=== PATIENT | female | born 1965 | race Caucasian/White ===

== ENCOUNTER 2019-01-22 08:25 | Day surgery (SDC) | payer OTHER, SELFPAY ==
[2019-01-17 17:14] LABS: Hematocrit 45.1 % (37-47); Hemoglobin 14.4 g/dL (12.0-15.0); Mean Corp Hgb Conc 31.9 g/dL (32-36); Mean Corpuscular Hgb 27.6 pg (27.0-32.0); Mean Corpuscular Volume 86.6 fL (81-99); Mean Platelet Vol. 10.6 fl (6.2-12.0); Platelet Count 254 K/mm3 (150-450); RBC Distribution Width CV 14.1 % (11.6-14.6); RBC Distribution Width SD 44.6 fl (35.1-43.9); Red Blood Count 5.21 M/mm3 (4.2-5.4); White Blood Count 8.8 K/mm3 (4.4-11.0)
[2019-01-17 17:19] LABS: International Normalized Ratio 1.1; Prothrombin Time (Protime)PT. 13.6 SECONDS (11.7-14.9)
[2019-01-17 17:20] LABS: Partial Thromboplast Time 31.6 Seconds (24.1-36.2)
[2019-01-17 17:29] LABS: AST(SGOT) 19 U/L (15-37); Alanine Aminotransfer ALT/SGPT 34 U/L (13-56); Albumin, Serum 3.8 g/dL (3.2-5.0); Alkaline Phosphatase 118 U/L (45-117); Anion Gap 6 (5-15); BUN 18 mg/dL (7-18); BUN/Creat Ratio 25.1 RATIO (10-20); Calcium,Total 9.1 mg/dL (8.5-10.1); Chloride 107 mmol/L (98-107); Creatinine, Serum 0.72 mg/dL (0.55-1.02); EST Glomerular Filtration Rate 89 mL/min (>60); Est Glom Filt Rate - Afr Amer 108 mL/min (>60); Globulin 3.8 g/dL (2.2-4.2); Glucose 121 mg/dL (74-106); Potassium 4.6 mmol/L (3.5-5.1); Protein, Total 7.6 g/dL (6.4-8.2); Sodium Level 143 mmol/L (136-145)
--- NOTE | 2019-01-21 18:05 | PCM.HP.BLA ---
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 Sofie claims it started discovered by CT scan and has been present since noted 12/21/18. It occurs all the time. It is located in the Uterus and is non-radiating. An associated sign and symptom is Enlarged Uterus found on CT scan 12/21/18. Additional comment: CT scan shows large inhomogenous uterus, denies any vaginal bleeding or symptoms and had blood in her urine for 2 days about a few weeks ago. ALLERGIES: Motrin, Stomach ache, Latex and Hives and/or rash MEDICATIONS HISTORY: Patient is also takin. atorvastatin 10 mg tablet, One pill by mouth once a day 2. fluoxetine 20 mg tablet, One pill by mouth once a day REVIEW OF SYSTEMS: GENERAL - Denies fever, or chills SKIN - Denies skin changes EYES - Denies visual changes EARS - Denies difficulty hearing NOSE - Denies nasal congestion or bleeding MOUTH - Denies sore throat or difficulty swallowing NECK - Denies pain or swelling RESPIRATORY - Denies shortness of breath or wheezing CARDIOVASCULAR - Denies palpitations or chest pain GASTROINTESTINAL - Denies nausea, vomiting, diarrhea, constipation GENITOURINARY - Denies dysuria, frequency of urination, incontinence of urine MUSCULOSKELETAL - Denies joint or muscle pain NEUROLOGICAL - Denies localized numbness or weakness PSYCHIATRIC - Denies depression or anxiety ENDOCRINE - Denies heat or cold intolerance, weight loss or gain HEMATO-IMMUNOLOGIC - Denies excesive bleeding with cuts PAST HISTORY: Breast/Ovarian/Colon Cancers - Denies Infections - Chicken pox, Mumps and Measles Illnesses - Hyperlipidemia, Anxiety Accidents - None History of Abnormal PAPS - Denies Hospitalizations - see surgery SURGICAL HISTORY: 1. 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 Illicit Drug Use - None Sexual Activity - sexually inactive Control - Not active CONSTITUTIONAL - NAD, well nourished, and well developed SKIN - No rash, lesions, or ulcers HEENT - Normocephalic, PERRLA, EOMI NECK - No nodes, no nuchal rigidity and thyroid normal size and texture LYMPH NODES - Palpation of lymph nodes in neck and groins within normal limits LUNGS - CTA x2 without wheezes, crackles or rales CARDIAC - Regular rate and rhythm without rubs, murmurs, or gallops ABDOMEN - Without hepatosplenomegaly, distention, masses, rebound, or guarding; normal bowel sounds; no hernias and 5-6 cm diameter ventral hernia EXTREMITIES - No edema or calf tenderness NEUROLOGICAL - Cranial nerves II-XII grossly intact PSYCHIATRIC - A and O to time, place, person, mood and affect DETAILED PELVIC EXAM External Genital Vagina - non-tender without lesions Urethra/Urethral Meatus - non-tender Bladder - non-tender Vagina - vaginal roman are pink and moist without loss of rugae and no evidence of atropy and intact hymen but able to feel cervix which was small Cervix - without cervical motion tenderness and has normal size and features without evident lesions Uterus - 18 cm mobile uterus Adnexa - clear without massess or tenderness Pap - deferred and due to intolerance of speculum placement ASSESSMENT: 1. Hypertrophy Of Uterus 2. Postmenopausal Bleeding PLAN BY DIAGNOSIS: 1. Hypertrophy Of Uterus and Postmenopausal Bleeding Likely fibroids by CT scan and exam. CA-125 ok. Plan D and C to confirm no uterine cancer present. Discussed RBAs and all questions answered.
[2019-01-22 08:57] VITALS: BP 138/74; PULSE 96; RESP 16; TEMP 36.7; O2SAT 96; BMI 55.2
[2019-01-22] MEDS: Lactated Ringers 1,000 ML 100 ML IV (09:03)
[2019-01-22 09:21] LABS: Bedside Glucose 113 mg/dL (70-110)
--- NOTE | 2019-01-22 10:00 | EMB_PTH ---
PATIENT: DAE RUST LOC: [facility] [place] U#:[id number] AGE/SX: 53/F ROOM: RE01/22/[address]: Dr. Jean-Claude Blue MD : 1965 BED: DIS: 01/22/2019 SPEC #: [id number] RECD: 01/22/19 13:22 STATUS: LUIS ANTONIO HERIBERTO #: [id number] KORI: 01/22/19 10:[address]: Jean-Claude Blue DEPT: SURGICAL PATHOLOGY RECD BY: Medardo Brooke ENTERED: 01/22/19 13:50 SP TYPE: ENDOM BX/C RACHAEL DR: Dr. Demetris East MD Tissues: A - Endometrium, NOS B - Endocervical Procedures: Surgery Specimen Level IV HEADER OPERATION: Hysteroscopy, dilation and curettage PRE-OP DIAGNOSIS: Postmenopausal bleeding TISSUE SUBMITTED: A - Endometrial curettings, B - Endocervical curettings MICROSCOPIC DIAGNOSIS A. Endometrium, curettings: Polypoid fragments of endometrium with simple cystic hyperplasia without atypia. B. Endocervix, curettings: Strips of benign superficial endocervix and benign strips of superficial squamous mucosa. AM:edward 01/23/19 COMMENT Case has been reviewed in consultation with Dr. He who concurs with the above diagnosis. IDC:ANDRE MICROSCOPIC DESCRIPTION Slides are reviewed. GROSS DESCRIPTION A - Received in fixative is one container labeled with the patient's name and designated endometrial curettings. The specimen consists of multiple irregular fragments of ramsay-pink to hemorrhagic soft tissue that in aggregate measure 3 x 2.5 x 0.3 cm. The entire specimen is submitted in one cassette. B - Received in fixative is one container labeled with the patient's name and designated endocervical curettings. The specimen consists of multiple fragments of hemorrhagic soft tissue that in aggregate measure 2 x 1 x 0.1 cm. The specimen is totally submitted in one cassette. / SJ:edward 01/22/19 TC:5 CPT: 38820 x2
--- NOTE | 2019-01-22 10:56 | PCM.OPRPT ---
Report of Operation Date of Procedure: 01/22/19 Pre-Operative Diagnosis: Postmenopausal Bleeding Post-Operative Diagnosis: Postmenopausal Bleeding and Submucous Fibroids Surgery/Procedure Performed:: Diagnostic Hysteroscopy and Fractional Dilation and Curettage Description of Surgical Findings:: Small cervix high in vagina and uterus which sounds to approximately 12 to 13 cm. On hysteroscopic exam there is noted to be approximately a 5 to 6 cm submucous uterine fibroid present more on the right than the left side of the uterus. Internal ostia visualized on a field of thinned endometrium area. Small 0.5 cm endocervical polyp noted. If hysterectomy is needed, it should be abdominal. Type of Anesthesia:: General - LMA Anesthesiologist: Allen Read Specimen's removed: Endometrial and Endocervical Curettings Estimated Blood Loss (mL): 50 cc Fluids Replaced: Crystalloid Description of Procedure: Surgeon: Jean-Claude Blue MD, FACOG Indications: This is a 53 year old patient who has the above diagnosis. The patient has been counseled regarding the risk and indications of this procedure including the possibility of bleeding, infection, and injury to surrounding structures such as bowel bladder. All questions were answered and we consider the patient well-informed. Procedure: The patient was taken to the operating room where after induction of general anesthesia, she was placed in the dorsolithotomy position and prepped and draped in the usual sterile fashion. The bladder was drained of approximately 100 cc of clear yellow urine with a latex free catheter. Anterior cervix was grasped with the tenaculum and dilated to about 4-5 mm. A 3 mm hysteroscope was placed in the uterus of the above findings were noted. Cervix was dilated to about 7-8 mm and uterus was gently curetted sampling contents. We were not able to remove the submucous fibroid due to its large size. After the procedure the patient was noted to have some continued vaginal bleeding and a single 1 inch iodoform pack was placed which help with hemostasis. The perineum also had some bleeding and a single yobpih-dj-[id number] 3-0 Vicryl suture was placed which stopped the perineal bleeding. The vaginal pack is to be removed in the recovery room in about an hour. In the course of the procedure approximately 100 cc of saline distending media was used and virtually all of this was recovered. Patient tolerated procedure well was taken to recovery room in satisfactory condition sponge instrument and needle counts were all reportedly correct. Estimated blood loss for the case was 50 cc. Specimens to pathology was endometrial and endocervical curettings Grafts/Implants Used: None - Complications None - Admit VTE Documentation VTE Present on Admission: Yes VTE Mechan Device Prophylaxis: SCD's
--- NOTE | 2019-01-22 11:16 | DCINST_ITS ---
Discharge Diet: No Restrictions Discharge Activity: Return to Normal Activity, May Shower, May Take a Tub Bath - in 2 weeks. May resume sexual activity in: 3 weeks Call your doctor if you observe: Fever of 101 or Higher, Inability to urinate, Inability to have a bowel movement, Using more than one pad per hour Allergies/Adverse Reactions: Allergies ibuprofen [From Motrin] Adverse Reaction (Verified 01/22/19 08:56) Upset Stomach Medications to take at Discharge Atorvastatin Calcium [Lipitor] 10 mg PO QHS 01/16/19 Cinnamon Bark [Cinnamon] 500 mg PO DAILY 01/16/19 Fluoxetine [Prozac] 20 mg PO DAILY 01/16/19 Glucos/MSM/Colgii/C/Man/Herb21 [Glucosamine-MSM Complex Cap] 1 ea PO DAILY 01/16/19 Turmeric Root Extract [Turmeric] 500 mg PO DAILY 01/16/19 Primary Care Physician: Demetris East MD [Primary Care Provider] - Test Results: Test results from this visit will be discussed in further detail at your follow- up appointment, if applicable. Please Follow Up With: Jean-Claude Blue MD When: 2-3 weeks
[2019-01-22 11:18] VITALS: BP 138/74; BP 142/79; PULSE 88; RESP 16; TEMP 36.3; O2SAT 94
[2019-01-22 11:30] VITALS: BP 101/72; BP 138/74; PULSE 85; RESP 16; O2SAT 95
[2019-01-22 11:45] VITALS: BP 126/85; BP 138/74; PULSE 83; RESP 16; O2SAT 96
[2019-01-22 11:53] VITALS: BP 113/47; BP 138/74; PULSE 85; RESP 16; TEMP 36.2; O2SAT 94
--- NOTE | 2019-01-22 12:50 | SUR.PHASEII ---
1240. packing removed. packing saturated with red drainage. no visible drainage noted. chux below patient to see if there is any further drainage.
[2019-01-22 13:13] VITALS: BP 130/70; BP 138/74; TEMP 36.6
== END 2019-01-22 13:18 | disposition home or self-care (01) ==
LOC: SDC 08:26 → AC 08:27
PROVIDERS: Family Provider Family Medicine; PCP Family Medicine; Referring Provider Obstetrics & Gynecology; Visit Provider Obstetrics & Gynecology
PROC: 0UDB8ZZ Extraction of Endometrium, Via Natural or Artificial Opening Endoscopic (ICD-10-PCS; CPT 58558; principal; 2019-01-22 09:50)
DX: N85.01 Benign endometrial hyperplasia (principal); D25.0 Submucous leiomyoma of uterus; E78.5 Hyperlipidemia, unspecified; F41.9 Anxiety disorder, unspecified; Z79.899 Other long term (current) drug therapy; Z87.891 Personal history of nicotine dependence
CPT/HCPCS: 00952; 58558; 36415; 80053; 82962; 85027; 85610; 85730; 86850; 86900; 86901; 88305; J7120; J2405

== ENCOUNTER 2019-03-19 08:01 | Inpatient (IN) | payer OTHER, SELFPAY ==
--- NOTE | 2019-03-14 17:01 | EKG12_ITS ---
Test Reason : PREOP Blood Pressure : / mmHG Vent. Rate : 094 BPM Atrial Rate : 094 BPM P-R Int : 148 ms QRS Dur : 082 ms QT Int : 356 ms P-R-T Axes : 057 064 050 degrees QTc Int : 445 ms Normal sinus rhythm Normal ECG Confirmed by TRELL SEO, RUY ([id number]), proposal editor ROD PAREDES ([id number]) on 03/16/2019 2:33:21 PM Referred By: Jean-Claude Blue Confirmed By:TREVOR CAI MD
[2019-03-14 17:07] LABS: Hematocrit 44.5 % (37-47); Hemoglobin 14.1 g/dL (12.0-15.0); Mean Corp Hgb Conc 31.7 g/dL (32-36); Mean Corpuscular Hgb 27.2 pg (27.0-32.0); Mean Corpuscular Volume 85.7 fL (81-99); Mean Platelet Vol. 10.3 fl (6.2-12.0); Platelet Count 241 K/mm3 (150-450); RBC Distribution Width CV 14.2 % (11.6-14.6); RBC Distribution Width SD 44.3 fl (35.1-43.9); Red Blood Count 5.19 M/mm3 (4.2-5.4); White Blood Count 8.8 K/mm3 (4.4-11.0)
[2019-03-14 17:18] LABS: International Normalized Ratio 1.1; Prothrombin Time (Protime)PT. 13.8 SECONDS (11.7-14.9)
[2019-03-14 17:19] LABS: Partial Thromboplast Time 31.1 Seconds (24.1-36.2)
[2019-03-14 17:33] LABS: ALB/GLOB Ratio 0.9 RATIO (0.9-2.4); AST(SGOT) 50 U/L (15-37); Alanine Aminotransfer ALT/SGPT 75 U/L (13-56); Albumin, Serum 3.6 g/dL (3.2-5.0); Alkaline Phosphatase 183 U/L (45-117); Anion Gap 3 (5-15); BUN 19 mg/dL (7-18); BUN/Creat Ratio 31.6 RATIO (10-20); Calcium,Total 9.2 mg/dL (8.5-10.1); Chloride 109 mmol/L (98-107); EST Glomerular Filtration Rate 110 mL/min (>60); Est Glom Filt Rate - Afr Amer 133 mL/min (>60); Globulin 3.8 g/dL (2.2-4.2); Glucose 128 mg/dL (74-106); Protein, Total 7.4 g/dL (6.4-8.2); Sodium Level 139 mmol/L (136-145)
[2019-03-14 17:56] LABS: Hemoglobin A1c 6.4 % (4.2-6.3)
--- NOTE | 2019-03-18 21:40 | HP.PCM_ITS ---
History and Physical Date of Admission: 03/19/19 Surgical History and Physical Sofie Pacheco, a 54 year old female 0 0 0 0 0, presents for STEPHEN/BSO on March 19, 2019 at 9:45. 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 Cystic EM Hyperplasia at D and C -- Sofie presents as referral from Dr. East for Fibroid Uterus. 53 y.o. G 0 P 0 post-menopausal sexually inactive previous smoker (quit in 2012) and reports that she had noticed blood in her urine and nothing when she wiped, and was ordered a CT Scan by Dr. East on 12-21-18 and showed enlarged Uterus with fibroids. Denies any further bleeding since that time. Adds that she was always unable to have a pelvic exam, due to being small in that area. She had a diagnostic hysteroscopy/D and C 01/22/19 at [facility]. Enlarged Uterus which began found on CT scan 12/21/18. Sofie claims it started discovered by CT scan and has been present since noted 12/21/18. It occurs all the time. It is located in the Uterus. Associated signs and symptoms are Enlarged Uterus found on CT scan 12/21/18. Additional comments are: CT scan shows large inhomogenous uterus. MEDICATIONS HISTORY: Patient is also takin. atorvastatin 10 mg tablet, One pill by mouth once a day 2. fluoxetine 20 mg tablet, One pill by mouth once a day ALLERGIES: Motrin, Stomach ache, Latex and Hives and/or rash Infections - Chicken pox, Mumps and Measles Illnesses - Hyperlipidemia, Anxiety Accidents - None Hospitalizations - see surgery Review of Systems: GENERAL - Denies fever, or chills SKIN - Denies skin changes EYES - Denies visual changes EARS - Denies difficulty hearing NOSE - Denies nasal congestion or bleeding MOUTH - Denies sore throat or difficulty swallowing NECK - Denies pain or swelling RESPIRATORY - Denies shortness of breath or wheezing CARDIOVASCULAR - Denies palpitations or chest pain GASTROINTESTINAL - Denies nausea, vomiting, diarrhea, constipation GENITOURINARY - Denies dysuria, frequency of urination, incontinence of urine MUSCULOSKELETAL - Denies joint or muscle pain NEUROLOGICAL - Denies localized numbness or weakness PSYCHIATRIC - Denies depression or anxiety ENDOCRINE - Denies heat or cold intolerance, weight loss or gain HEMATO-IMMUNOLOGIC - Denies excesive bleeding with cuts SOCIAL HISTORY: Alcohol Use - RARELY Smoking - used to smoke but quit Diet - no special diet Lifestyle - moderate stress lifestyle and single Exercise - active work Seat Belt Use - always 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 T and A, 1971 2. 01/22/2019 dx hysteroscopy, fractional D ; Jean-Claude Blue M.D. PHYSICAL EXAM BP- 132/80 Sitting, Right arm, large cuff Weight- 300.76649 lbs Height- 98.5 inch BMI:21.79 CONSTITUTIONAL - NAD, well nourished, and well developed SKIN - No rash, lesions, or ulcers HEENT - Normocephalic, PERRLA, EOMI NECK - No nodes, no nuchal rigidity and thyroid normal size and texture LYMPH NODES - Palpation of lymph nodes in neck and groins within normal limits LUNGS - CTA x2 without wheezes, crackles or rales CARDIAC - Regular rate and rhythm without rubs, murmurs, or gallops ABDOMEN - Without hepatosplenomegaly, distention, masses, rebound, or guarding; normal bowel sounds; no hernias and 5-6 cm diameter ventral hernia EXTREMITIES - No edema or calf tenderness NEUROLOGICAL - Cranial nerves II-XII grossly intact PSYCHIATRIC - A and O to time, place, person, mood and affect External Genitial Vagina - non-tender without lesions Urethra/Urethral Meatus - non-tender Bladder - non-tender Vagina - vaginal roman are pink and moist without loss of rugae and no evidence of atropy and intact hymen but able to feel cervix which was small Cervix - without cervical motion tenderness and has normal size and features without evident lesions Uterus - 18 cm mobile uterus Adnexa - clear without massess or tenderness Pap - deferred and due to intolerance of speculum placement ASSESSMENT/PLAN: 1. Hypertrophy Of Uterus and Postmenopausal Bleeding Likely fibroids by CT scan and exam. CA-125 ok. D and C showed cystic EM hyperplasia without atypia. Plan STEPHEN/BSO. Discussed RBAs and all questions answered.
[2019-03-19] VITALS (14 sets, daily range): BP systolic 109–160; BP diastolic 62–85; PULSE 75–115; RESP 16–20; TEMP 36.2–36.9; O2SAT 92–100; BMI 55.2
[2019-03-19 08:20] LABS: Bedside Glucose 131 mg/dL (70-110)
[2019-03-19] MEDS: Lactated Ringers 1,000 ML 100 ML IV ×2 (08:35→11:15)
--- NOTE | 2019-03-19 10:10 | HYST_PTH ---
PATIENT: DAE RUST LOC: [facility] U#:[id number] AGE/SX: 54/F ROOM: [facility]324 RE03/19/[address]: Dr. Jean-Claude Blue MD : 1965 BED: 1 DIS: 03/21/2019 SPEC #: [id number] RECD: 03/19/19 12:18 STATUS: LUIS ANTONIO LOUIS #: [id number] KORI: 03/19/19 10:[address]: Jean-Claude Blue DEPT: SURGICAL PATHOLOGY RECD BY: aMlika Davidson ENTERED: 03/19/19 14:55 SP TYPE: HYSTERECT OTHR DR: MD Dr. Demetris Marques MD Tissues: Uterus, NOS Procedures: Surgery Specimen Level V HEADER OPERATION: Hysterectomy, STEPHEN, bilateral salpingo-oophorectomy PRE-OP DIAGNOSIS: Hypertrophy of uterus; postmenopausal bleeding TISSUE SUBMITTED: Uterus, bilateral tubes, ovaries MICROSCOPIC DIAGNOSIS Uterus, bilateral fallopian tubes and ovary, total abdominal hysterectomy and bilateral salpingo-oophorectomy: Cervix - mild chronic inflammation. Endometrium - simple cystic endometrial hyperplasia without atypia. Endometrial polyp - simple cystic endometrial hyperplasia without atypia. Myometrium - leiomyoma (22 cm in greatest dimension). One fallopian tube - no pathologic diagnosis. Second fallopian tube and adjacent ovary - no pathologic diagnosis. Second ovary - endometriosis (block 18). ANDRE:edward 03/20/19 COMMENT Please make reference to previous specimen ([id number]) endometrium, curettings with diagnosis of polypoid fragments of endometrium with simple cystic hyperplasia without atypia. MICROSCOPIC DESCRIPTION Slides are reviewed. GROSS DESCRIPTION Received in fixative is one container labeled with the patient's name and designated uterus, fallopian tubes and ovaries. The specimen consists of a hysterectomy specimen consisting of a markedly deformed uterus with cervix and detached one fallopian tube, second fallopian tube and adjacent ovary. [place] detached pieces are also noted possible second ovarian tissue. The uterus with cervix weighs 1361 gm and measures fundus to external os 25 cm and transversely 13 cm and 9 cm anterior posteriorly. The serosal surface is ramsay, glistening. The endocervical canal measures 3 cm in length and the endocervical mucosa is ramsay, glistening and unremarkable. The endometrial cavity is compressed and measures 4.5 cm in length and 4 cm in width. A sessile polyp is noted measuring 4.5 x 3 x 1 cm. The myometrial wall underneath the polyp is not indurate. Sections of the uterine wall reveal a nodular mass at the fundus measuring 22 x 12 x 11 cm. Sections of this mass reveal ramsay whorled cut surfaces without areas of hemorrhage, necrosis or cystic degeneration. Fallopian tubes and ovaries are not identified as right or left. One of the fallopian tubes measure 6 cm in length and 0.5 cm in diameter. Fimbrial end is identified. Sections reveal unremarkable cut surfaces. The second fallopian tube measures 4.5 cm in length and 0.5 cm in diameter. No obvious fimbrial end is identified. Adjacent ovary is noted at one end measuring 2 x 1.5 x 1 cm. Two detached pieces of tissue are also noted, possible ovarian tissue measuring 1.5 x 1.5 x 1 cm and 1.5 x 1.5 x 0.5 cm. Retail Beauty Specialist sections are submitted in 18 cassettes as follows: 1 & 2 - cervix, 3-6 - uterine wall (3 & 4 also contains the nodular mass), 7-10 endometrial polyp (7 contains the endometrial polyp with underlying uterine wall, entire uterine polyp is submitted), 11-14 - nodular mass, 15 - one fallopian tube, 16 & 17 - second fallopian tube and ovary (16 - ovary, entirely submitted and 17 - fallopian tube), 18 - second possible ovary, entirely submitted. / ANDRE:edward 03/19/19 TC:1 CPT: 38113
--- NOTE | 2019-03-19 12:16 | PCM.OPRPT ---
Report of Operation Date of Procedure: 03/19/19 Pre-Operative Diagnosis: Uterine Fibroids, Simple Endometrial Hyperplasia, Postmenopausal Bleeding Post-Operative Diagnosis: Uterine Fibroids, Simple Endometrial Hyperplasia, Postmenopausal Bleeding, Adhesions, Endometriosis Surgery/Procedure Performed:: Total Abdominal Hysterectomy and Bilateral Salpingo-Oophorectomy, Lysis of Adhesions Description of Surgical Findings:: 20 cm fibroid uterus with dense adhesions of the ovaries and tubes to the pelvic sidewalls. Evidence of endometriosis in the left ovary. mobile health vehicle operator: Chantale Long Type of Anesthesia:: General - Endotracheal Anesthesiologist: Ramila Read Specimen's removed: Uterus and bilateral fallopian tubes and ovaries. Drains: Srinivasan to straight drain Estimated Blood Loss (mL): 200 cc Fluids Replaced: Crystalloid Description of Procedure: Surgeon: Jean-Claude Blue MD, FACOG Indications: This is a 54-year-old patient 0 who his been having problems with an extremely large uterine fibroid, postmenopausal bleeding, and a recent D&C showed cystic endometrial hyperplasia without atypia. Given this the patient desires that we proceed with the above procedure. She has been counseled regarding the risk and indications of this procedure including the possibility of bleeding, infection, and injury to surrounding structures such as bowel bladder. All questions were answered. Procedure: Patient was taken to the operating room where after induction of general anesthesia she was prepped and draped in the usual sterile fashion. A Srinivasan catheter was placed. The abdomen was entered through a Pfannenstiel incision and peritoneal cavity was entered bluntly. Velazquez straps had been applied. The uterus and fibroids were delivered and Panfilo retractor was placed. Round ligaments were identified and ligated with 0 Vicryl suture. A bladder flap was developed and progressive bites were then taken down on either side of the uterine cervix ligating each pedicle with 0 Vicryl suture. Final bites across the vaginal cuff incorporated the uterosacral ligaments into the vaginal cuff using 0 Vicryl suture and multiple elestm-[id number] sutures were placed across the vaginal cuff. Vaginal cuff and pelvic sidewall pedicles were oversewn where necessary to achieve hemostasis. After lysing adhesions with sharp and blunt dissection, ovaries and tubes were identified and removed by placing 0 Vicryl suture x2 across the pedicles. It should be noted that some chocolate cystic fluid was noted in the left ovary and only pieces of the left ovary were able to be removed due to the endometriosis and dense adhesions to the sigmoid. Some ovarian remnant likely persists on the left. Pelvis was copiously irrigated removing all clot and Zaida was placed across the pedicles to help with postoperative hemostasis. [place] retractor was removed and rectus abdominis muscles were reapproximated in the midline with interrupted 0 Vicryl suture. 0 PDS strata fix was used to close the fascia in a running fashion and subcutaneous tissue was copiously irrigated with saline solution before closing with 3-0 Vicryl suture in 2 layers. 3-0 Monocryl suture was then used in running fashion to reapproximate skin edges area and Steri-Strips and Mepilex were placed across the incision. Patient tolerated the procedure well was taken to recovery room in satisfactory condition; sponge instrument and needle counts were all reportedly correct. Estimated blood loss for the case was 200 cc. Cefotan 2 g IV was given prior to beginning the operative procedure. There were no apparent complications of the surgery. Specimen to pathology was uterus and bilateral fallopian tubes and ovaries. Grafts/Implants Used: None - Complications None - Admit VTE Documentation VTE Present on Admission: Yes VTE Mechan Device Prophylaxis: SCD's VTE Pharm Prophylaxis ordered?: Yes
--- NOTE | 2019-03-19 12:26 | PCM.DC.AHY ---
Discharge Diet: No Restrictions Discharge Activity: Return to Normal Activity - do what you feel comfortable, but do not over do it. You may climb stairs, just use caution and hold the railing., May Not Drive - for a few days or while taking narcotic pain medications., May Shower, May Take a Tub Bath May resume sexual activity in: 6 weeks - nothing in the vagina. Lifting Restrictions: 25 pounds for 6 weeks. Call your doctor if your incision/area has: Continuous Slow Oozing, Sudden Increased Bleeding, Increased Pain/ Swelling, Increased Redness, Foul Smelling Discharge Call your doctor if you observe: Fever of 101 or Higher, Inability to urinate, Inability to have a bowel movement, Using more than one pad per hour, - - Some vaginal bleeding may be noted for up to 4-8 weeks. Cleanse incision/area with: - - Let the soapy water run over your incision, rinse and pat dry. Additional Dressing/Incision Instructions:: The white strips (Steri Strips) on your incision will fall off on their own. Allergies/Adverse Reactions: Allergies latex Allergy (Verified 03/19/19 08:11) Rash ibuprofen [From Motrin] Adverse Reaction (Verified 03/19/19 08:11) Upset Stomach Medications to take at Discharge Atorvastatin Calcium [Lipitor] 10 mg PO DAILY 01/16/19 Cinnamon Bark [Cinnamon] 500 mg PO DAILY 01/16/19 Fluoxetine [Prozac] 20 mg PO DAILY 01/16/19 Glucos/MSM/Colgii/C/Man/Herb21 [Glucosamine-MSM Complex Cap] 1 ea PO DAILY 01/16/19 Turmeric Root Extract [Turmeric] 500 mg PO DAILY 01/16/19 Docusate Sodium [Colace] 100 mg PO BID PRN PRN #60 cap 03/19/19 Oxycodone [Oxyir] 5 mg PO Q6H PRN PRN 7 Days #20 tab 03/19/19 The following prescriptions were given: Docusate Sodium [Colace] 100 mg PO BID PRN PRN #60 cap PRN Reason: Constipation [facility] Oxycodone [Oxyir] 5 mg PO Q6H PRN PRN 7 Days #20 tab PRN Reason: Pain Score 6-10/10 Transmission Status: Received by [facility] Primary Care Physician: Demetris East MD [Primary Care Provider] - Test Results: Test results from this visit will be discussed in further detail at your follow-up appointment, if applicable. Please Follow Up With: Jean-Claude Blue MD - [phone] When: in 2 weeks, please call to make an appointment.
[2019-03-19] MEDS: Lactated Ringers 1,000 ML 150 ML IV ×3 (12:53→23:25)
[2019-03-19 13:00] LABS: Bedside Glucose 169 mg/dL (70-110)
[2019-03-19] MEDS: Acetaminophen 500 MG Tablet 1000 MG PO (16:36)
[2019-03-19] MEDS: Ketorolac 30 MG/ML Syringe IV (18:53)
[2019-03-20] VITALS (11 sets, daily range): BP systolic 112–137; BP diastolic 59–75; PULSE 94–110; RESP 18–20; TEMP 36.7–36.9; O2SAT 80–100
[2019-03-20] MEDS: Ketorolac 30 MG/ML Syringe IV ×4 (00:14→17:56)
[2019-03-20] MEDS: Acetaminophen 500 MG Tablet 1000 MG PO (04:31)
--- NOTE | 2019-03-20 05:18 | NURSING ---
Addendum entered by Alisa Weber 03/20/19 05:25: Patient ambulated ~1/2 lap around unit. Original Note: Patient's O2 saturation drops with ambulation. 73% on RA. 83% on 1 L. After placed on 2L, 99%.
[2019-03-20 06:46] LABS: Hematocrit 39.9 % (37-47); Hemoglobin 13.1 g/dL (12.0-15.0); Mean Corp Hgb Conc 32.8 g/dL (32-36); Mean Corpuscular Hgb 28.2 pg (27.0-32.0); Mean Corpuscular Volume 85.8 fL (81-99); Mean Platelet Vol. 10.6 fl (6.2-12.0); Platelet Count 251 K/mm3 (150-450); RBC Distribution Width CV 14.4 % (11.6-14.6); RBC Distribution Width SD 44.9 fl (35.1-43.9); Red Blood Count 4.65 M/mm3 (4.2-5.4); White Blood Count 11.2 K/mm3 (4.4-11.0)
[2019-03-20 07:10] LABS: Creatinine, Serum 0.95 mg/dL (0.55-1.02); EST Glomerular Filtration Rate 64 mL/min (>60); Est Glom Filt Rate - Afr Amer 78 mL/min (>60)
--- NOTE | 2019-03-20 08:44 | PN.OBGYN_ITS ---
Subjective: Patient without complaints. Pain well controlled. Tolerating diet well. Wants to go home later today if possible. Maintained on 2 L of oxygen which is necessary to maintain sats in the 90s. - Physical Exam Vitals/I&O's: Vital Signs Temp Pulse Resp BP Pulse Ox 98.2 F 110 H 18 112/65 100 03/20/19 04:00 03/20/19 04:00 03/20/19 04:51 03/20/19 04:00 03/20/19 05:18 Oxygen Flow Rate (L/min) 2 Oxygen Delivery Method Nasal Cannula Weight: 296 lb 15.402 oz Body Mass Index (BMI) 55.2 Finger Stick Blood Glucose 169 Intake and Output for Last 24 Hours 03/18/19 03/19/19 03/20/19 23:59 23:59 23:59 Intake Total 5416.67 / 5416.67 1040.75 / 1040.75 Output Total 700 / 700 1500 / 1500 Balance 4716.67 / 4716.67 -459.25 / -459.25 Comment: Wound CDI. Good urine output. Hemoglobin and creatinine okay. Laboratory Results 03/19/19 12:56: POC Glucose 169 H 03/20/19 06:34: WBC 11.2 H, RBC 4.65, Hgb 13.1, Hct 39.9, MCV 85.8, MCH 28.2, MCHC 32.8, RDW Std Deviation 44.9 H, RDW Coeff of Sam 14.4, Plt Count 251, MPV 10.6 03/20/19 06:34: Creatinine 0.95, Estim Creat Clear Calc 49.90, Est GFR (MDRD) Af Amer 78, Est GFR (MDRD) Non-Af 64 Current Medications Acetaminophen (Tylenol) 1,000 mg PO Q8H PRN PRN PRN Reason: Pain Score 1-3/10 or Fever Last Admin: 03/20/19 04:31 Dose: 1,000 mg Documented by: Atorvastatin Calcium (Lipitor) 10 mg PO DAILY [facility] Docusate Sodium (Colace) 100 mg PO BID PRN PRN PRN Reason: CONSTIPATION Enoxaparin Sodium (Lovenox) 40 mg SC DAILY [facility] Fluoxetine HCl (Prozac) 20 mg PO DAILY [facility] Hydromorphone HCl (Dilaudid Inj) 0.5 - 1.5 mg IV Q3H PRN PRN PRN Reason: Pain Score 4-10/10 Lactated Ringer's () 1,000 mls @ 150 mls/hr IV .Q6H40M [facility] Last Infusion: 03/20/19 06:03 Dose: 0 mls/hr Documented by: Ketorolac Tromethamine (Toradol) 30 mg IV Q6H [facility] Stop: 03/24/19 18:31 Last Admin: 03/20/19 05:33 Dose: 30 mg Documented by: Ondansetron HCl (Zofran) 4 mg IV Q4H PRN PRN PRN Reason: NAUSEA Oxycodone HCl (Oxyir) 5 - 10 mg PO Q4H PRN PRN PRN Reason: Pain Score 4-10/10 Simethicone (Mylicon) 80 mg PO [facility] Last Admin: 03/19/19 21:45 Dose: 80 mg Documented by: Sodium Chloride () 10 - 40 ml IV UD PRN PRN Reason: SALINE FLUSH Medical Necessity - Tobacco Use Smoking Status: Former smoker Assessment/Plan Doing well from surgical standpoint on postoperative day #1 status post total abdominal hysterectomy and BSO. Will consult medicine as patient may have chronic sleep apnea causing low oxygen saturations at rest. Continuing DVT prophylaxis. Home-going instructions given for possible release later today if patient is able to pass flatus and if okay with hospitalist service.
--- NOTE | 2019-03-20 09:35 | RAD_ITS ---
STUDY: X-RAY CHEST REASON FOR EXAM: Female, 54 years old. Dyspnea TECHNIQUE: Single AP portable view of the chest. COMPARISON: None. FINDINGS: Elevation of the right hemidiaphragm. Minimal increase in markings at the right lung base suggestive of a right basilar atelectasis. There is no demonstrated pleural abnormality. Normal size heart. Normal mediastinum and sarabjit. Normal visualized pulmonary arteries. There is atherosclerotic tortuosity of the aortic arch and descending thoracic aorta. There are degenerative changes of the visualized thoracic spine. Normal visualized ribs, clavicles, and shoulders. There is no demonstrated abnormality of the visualized soft tissue structures of the upper abdomen. RAD/Chest 1 View (Portable) IMPRESSION: There is elevation of the right hemidiaphragm with mild increased linear markings at the right lung base suggestive of linear atelectasis Electronically Signed: Marcelino Baez, at 13:57 EST , Service support ,
--- NOTE | 2019-03-20 09:47 | CON.PCM_ITS ---
Problem List (1) Postoperative hypoxia Status: Acute (2) Dyslipidemia Status: Chronic (3) BMI 50.0-59.9, adult Status: Chronic (4) Dysthymia Status: Chronic Reason for Consult Date of Consultation: 03/20/19 Reason for Consultation: Postoperative hypoxia History of Present Illness: The patient is a 54 year old F who underwent Total Abdominal Hysterectomy and Bilateral Salpingo-Oophorectomy, Lysis of Adhesions on account of Uterine Fibroids, Simple Endometrial Hyperplasia, Postmenopausal Bleeding, Adhesions, E ndometriosis in 03/19/2021 Dr Blue. The hospitalist service was consulted to assist with postop management after patient developed hypoxia.. Patient reports having been diagnosed with flulike symptoms/bronchitis treated with antibiotics a week prior to her surgery. Past Medical History Past Medical History (Chronic Problems): Chronic Problems Dyslipidemia (Chronic) BMI 50.0-59.9, adult (Chronic) Dysthymia (Chronic) Allergies latex Allergy (Verified 03/19/19 08:11) Rash ibuprofen [From Motrin] Adverse Reaction (Verified 03/19/19 08:11) Upset Stomach Home Medications: Ambulatory Orders Medication Instructions Recorded Atorvastatin Calcium [Lipitor] 10 mg PO DAILY 01/16/19 Cinnamon Bark [Cinnamon] 500 mg PO DAILY 01/16/19 Fluoxetine [Prozac] 20 mg PO DAILY 01/16/19 Glucos/MSM/Colgii/C/Man/Herb21 1 ea PO DAILY 01/16/19 [Glucosamine-MSM Complex Cap] Turmeric Root Extract [Turmeric] 500 mg PO DAILY 01/16/19 Docusate Sodium [Colace] 100 mg PO BID PRN PRN #60 cap 03/19/19 Oxycodone [Oxyir] 5 mg PO Q6H PRN PRN 7 Days #20 tab 03/19/19 Surgical History: hysterectomy Smoking Status: Former smoker - *Family History Maternal History Items: Hypertension Review of Systems Constitutional: Denies: Anorexia, Chills, Fever, Night Sweats, Weight Change HEENT: Denies: Head Aches, Sinus Congestion, Sinus Drainage Cardiovascular: Denies: Chest Pain, Orthopnea, Palpitations, Paroxysmal Noc. Dyspnea Respiratory: Reports: Shortness of breath at rest, Shortness of breath upon exertion, Sputum production. Denies: Cough Gastrointestinal: Denies: Abdominal Pain, Hematemesis, Hematochezia, Nausea, Melena, Vomiting Genitourinary: Denies: Dysuria, Frequency, Hematuria, Urgency Musculoskeletal: Denies: Joint Pain, Joint Tenderness Skin: Denies: Rash Neurological: Denies: Focal weakness, Numbness, Tingling Psychiatric: Denies: Homicidal Ideations, Suicidal Ideations Hematologic/ Lymphatic: Denies: Easy Bruising, Easy Bleeding Patient Problems: Active and Suspected Problems Postoperative hypoxia (Acute) Objective: GENERAL: cooperative HEENT: Atraumatic; EYES; Anicteric, Normal Conjunctiva NECK; supple, normal thyroid, RESPIRATORY: Diminished to auscultation CARDIOVASCULAR: Regular S1 S2, GI: soft, normoactive bowel sounds, : No Renal angle tenderness; EXTREMITIES: No edema, no clubbing, MUSCULOSKELETAL: no muscle waisting NEURO: Awake; no lateralizing signs. SKIN: No Rash PSYCH; Flat affect - Physical Exam Vitals/I&O's: Vital Signs Temp Pulse Resp BP Pulse Ox 98.2 F 110 H 18 112/65 96 03/20/19 04:00 03/20/19 04:00 03/20/19 04:51 03/20/19 04:00 03/20/19 07:39 Oxygen Flow Rate (L/min) 2 Oxygen Delivery Method Nasal Cannula Weight: 134.7 kg Body Mass Index (BMI) 55.2 Finger Stick Blood Glucose 169 Intake and Output for Last 24 Hours 03/18/19 03/19/19 03/20/19 23:59 23:59 23:59 Intake Total 5416.67 / 5416.67 1040.75 / 1040.75 Output Total 700 / 700 1500 / 1500 Balance 4716.67 / 4716.67 -459.25 / -459.25 Laboratory Results 03/19/19 12:56: POC Glucose 169 H 03/20/19 06:34: WBC 11.2 H, RBC 4.65, Hgb 13.1, Hct 39.9, MCV 85.8, MCH 28.2, MCHC 32.8, RDW Std Deviation 44.9 H, RDW Coeff of Sam 14.4, Plt Count 251, MPV 10.6 03/20/19 06:34: Creatinine 0.95, Estim Creat Clear Calc 49.90, Est GFR (MDRD) Af Amer 78, Est GFR (MDRD) Non-Af 64 Current Medications Acetaminophen (Tylenol) 1,000 mg PO Q8H PRN PRN PRN Reason: Pain Score 1-3/10 or Fever Last Admin: 03/20/19 04:31 Dose: 1,000 mg Documented by: Atorvastatin Calcium (Lipitor) 10 mg PO DAILY [facility] Docusate Sodium (Colace) 100 mg PO BID PRN PRN PRN Reason: CONSTIPATION Enoxaparin Sodium (Lovenox) 40 mg SC DAILY [facility] Fluoxetine HCl (Prozac) 20 mg PO DAILY [facility] Hydromorphone HCl (Dilaudid Inj) 0.5 - 1.5 mg IV Q3H PRN PRN PRN Reason: Pain Score 4-10/10 Lactated Ringer's () 1,000 mls @ 150 mls/hr IV .Q6H40M [facility] Last Infusion: 03/20/19 06:03 Dose: 0 mls/hr Documented by: Ketorolac Tromethamine (Toradol) 30 mg IV Q6H [facility] Stop: 03/24/19 18:31 Last Admin: 03/20/19 05:33 Dose: 30 mg Documented by: Ondansetron HCl (Zofran) 4 mg IV Q4H PRN PRN PRN Reason: NAUSEA Oxycodone HCl (Oxyir) 5 - 10 mg PO Q4H PRN PRN PRN Reason: Pain Score 4-10/10 Simethicone (Mylicon) 80 mg PO [facility] Last Admin: 03/19/19 21:45 Dose: 80 mg Documented by: Sodium Chloride () 10 - 40 ml IV UD PRN PRN Reason: SALINE FLUSH Assessment/Plan All Active Problems Postoperative hypoxia (Acute) The patient is a 54 year old F who underwent Total Abdominal Hysterectomy and Bilateral Salpingo-Oophorectomy, Lysis of Adhesions on account of Uterine Fibroids, Simple Endometrial Hyperplasia, Postmenopausal Bleeding, Adhesions, Endometriosis in 03/19/2021 Dr Blue. The hospitalist service was consulted to assist with postop management after patient developed hypoxia 1. Postop hypoxia ?Possibly related to atelectasis, Placed on supplemental oxygen therapy to keep oxygen saturation greater than 90, as part of patient's evaluation ordered a d- dimer, BNP, BMP, chest x-ray. Also did encourage the patient on the use of incentive spirometry 2. Status post Total Abdominal Hysterectomy and Bilateral Salpingo- Oophorectomy, Lysis of Adhesions on account of Uterine Fibroids, Simple Endometrial Hyperplasia, Postmenopausal Bleeding, Adhesions, Endometriosis in 03/19/[address] Blue 3. Suspected sleep apnea ?Patient to undergo sleep study as outpatient following her discharge. Instructed to call PCP to set up an appointment 4. Dyslipidemia -patient is on statin therapy, continued at home dose 5. Dysthymia ?Patient is on SSRI 6. DVT prophylaxis ?On enoxaparin, dose adjusted for weight Active Medications Acetaminophen (Tylenol) 1,000 mg PO Q8H PRN PRN PRN Reason: Pain Score 1-3/10 or Fever Last Admin: 03/20/19 04:31 Dose: 1,000 mg Documented by: Atorvastatin Calcium (Lipitor) 10 mg PO DAILY [facility] Last Admin: 03/20/19 09:54 Dose: 10 mg Documented by: Docusate Sodium (Colace) 100 mg PO BID PRN PRN PRN Reason: CONSTIPATION Enoxaparin Sodium (Lovenox) 40 mg SC DAILY [facility] Fluoxetine HCl (Prozac) 20 mg PO DAILY [facility] Last Admin: 03/20/19 09:53 Dose: 20 mg Documented by: Furosemide (Lasix) 80 mg IV X1 [facility] Stop: 03/20/19 10:14 Hydromorphone HCl (Dilaudid Inj) 0.5 - 1.5 mg IV Q3H PRN PRN PRN Reason: Pain Score 4-10/10 Lactated Ringer's () 1,000 mls @ 150 mls/hr IV .Q6H40M [facility] Last Infusion: 03/20/19 06:03 Dose: 0 mls/hr Documented by: Ketorolac Tromethamine (Toradol) 30 mg IV Q6H [facility] Stop: 03/24/19 18:31 Last Admin: 03/20/19 05:33 Dose: 30 mg Documented by: Ondansetron HCl (Zofran) 4 mg IV Q4H PRN PRN PRN Reason: NAUSEA Oxycodone HCl (Oxyir) 5 - 10 mg PO Q4H PRN PRN PRN Reason: Pain Score 4-10/10 Simethicone (Mylicon) 80 mg PO [facility] Last Admin: 03/20/19 09:53 Dose: 80 mg Documented by: Sodium Chloride () 10 - 40 ml IV UD PRN PRN Reason: SALINE FLUSH Code Visit Office Visits / Consults: 20906 IP Consult L5
[2019-03-20] MEDS: FLUoxetine 20 MG Capsule PO (09:53)
[2019-03-20] MEDS: Atorvastatin Calcium 10 MG Tablet PO (09:54)
[2019-03-20 10:25] LABS: Magnesium 1.9 mg/dL (1.6-2.6)
[2019-03-20 10:33] LABS: Anion Gap 6 (5-15); BUN 14 mg/dL (7-18); BUN/Creat Ratio 14.7 RATIO (10-20); Calcium,Total 8.5 mg/dL (8.5-10.1); Chloride 106 mmol/L (98-107); Glucose 134 mg/dL (74-106); Potassium 4.2 mmol/L (3.5-5.1); Sodium Level 138 mmol/L (136-145)
[2019-03-20 10:48] LABS: BNP,B-Type NATRIURETIC PEPTIDE 102.8 pg/mL (0-100)
[2019-03-20 11:12] LABS: D-Dimer Quantitative (DVT/PE) 4.87 FEU/ug/m (0.27-0.49)
--- NOTE | 2019-03-20 11:20 | CT_ITS ---
STUDY: CTA CHEST REASON FOR EXAM: Female, 54 years old. STEPHEN/BSO YESTERDAY. CANT KEEP O2 UP, ELEVATED D-DIMER, SOB. RADIATION DOSAGE (If Supplied By Facility): CTDIvol = ( 15.57 ) mGy, DLP = ( 577.85 ) mGycm TECHNIQUE: The examination was performed with the intravenous administration of IV-100 mL Isovue 370. Post-processing of the angiographic images was performed, with multiplanar reformation and 3D reconstruction. Individualized dose optimization techniques were used for this CT. COMPARISON: None. FINDINGS: 3.6 cm x 5.9 cm area of increased attenuation in the subcutaneous fat overlying the posterior aspect of the upper abdomen most likely representing ecchymosis. Normal enhancement of the main pulmonary artery and right and left pulmonary arteries. Normal enhancement of the bilateral peripheral pulmonary arteries. There is no demonstrated pulmonary embolism. Normal thoracic aorta and visualized great vessels. There is no demonstrated aortic dissection. Normal heart and pericardium. Normal mediastinum. Normal hilar regions. Normal visualized trachea and bronchi. The lungs are well expanded. Normal pulmonary parenchyma. Normal pleura. Normal chest wall structures. There are degenerative changes of thoracic spine. Gallstones. CT/CTA Chest W/WO Contrast IMPRESSION: Gallstones. No evidence of pulmonary embolism. Electronically Signed: Marcelino Baez, at 13:55 EST , Service support ,
--- NOTE | 2019-03-20 11:30 | CASEMGMT ---
RN CM Assessment Note Presentation: STEPHEN; hypoxia. + D-Dimer, CTA chest ordered. Intro role of CM and purpose of RN CM assessment to patient. Demographics, PCP and Pharmacy verified. Pt is awake, alert and able to participate in assessment. Pt states she is very independent at home. No DME use prior to admission. Plans to return home on dc. PCP: Dr. East Specialists: Dr. Blue Preferred Pharmacy: [facility] Insurance: [facility] Prescription Benefit: yes LNOK: sister Kristi Christiansen Living Arrangements: Lives independently. No care needs identified. Pt states she will be able to care for self once home. Does not anticipate needing assist at this time. Pt was sitting in chair, using incentive spirometry. Transportation: Drives DME: none HHC/SNF: none Patient DC goals: Home DC PLAN: Anticipate Home. CTA results pending. Pt remains on 1L oxygen- does not wear home O2. Rajesh MARIN RN ACM
[2019-03-20] MEDS: Furosemide 100 MG/10 ML Vial 80 MG IV (13:04)
[2019-03-20] MEDS: 0.9% Saline Lock 10 ML Syringe IV ×3 (13:07→21:34)
[2019-03-21] MEDS: Ketorolac 30 MG/ML Syringe IV (01:07)
[2019-03-21 01:15] VITALS: O2SAT 83
[2019-03-21 03:00] VITALS: BP 130/62; PULSE 98; RESP 20; TEMP 36.7; O2SAT 99
[2019-03-21 05:28] LABS: Hematocrit 37.1 % (37-47); Hemoglobin 11.8 g/dL (12.0-15.0); Mean Corp Hgb Conc 31.8 g/dL (32-36); Mean Corpuscular Hgb 27.6 pg (27.0-32.0); Mean Corpuscular Volume 86.7 fL (81-99); Mean Platelet Vol. 10.3 fl (6.2-12.0); Platelet Count 198 K/mm3 (150-450); RBC Distribution Width CV 14.6 % (11.6-14.6); RBC Distribution Width SD 46.4 fl (35.1-43.9); Red Blood Count 4.28 M/mm3 (4.2-5.4); White Blood Count 6.2 K/mm3 (4.4-11.0)
[2019-03-21 05:34] LABS: Anion Gap 3 (5-15); BUN 19 mg/dL (7-18); BUN/Creat Ratio 28.7 RATIO (10-20); Calcium,Total 8.4 mg/dL (8.5-10.1); Chloride 106 mmol/L (98-107); Creatinine, Serum 0.66 mg/dL (0.55-1.02); EST Glomerular Filtration Rate 98 mL/min (>60); Est Glom Filt Rate - Afr Amer 119 mL/min (>60); Estimated Creatinine Clearance 71.82 ml/min; Glucose 113 mg/dL (74-106); Potassium 3.7 mmol/L (3.5-5.1); Sodium Level 141 mmol/L (136-145)
--- NOTE | 2019-03-21 07:23 | PCM.PN.HOSP ---
Patient Problems: Active and Suspected Problems Postoperative hypoxia (Acute) Reason for Visit: Follow-up hysterectomy and hypoxia. Subjective: Patient seen her hypoxia did resolve with Lasix. Underwent CTA which was negative for PE. Will recommend for patient to be discharged home. Objective: GENERAL: cooperative HEENT: Atraumatic; EYES; Anicteric, Normal Conjunctiva NECK; supple, normal thyroid, RESPIRATORY: Diminished to auscultation CARDIOVASCULAR: Regular S1 S2, GI: soft, normoactive bowel sounds, : No Renal angle tenderness; EXTREMITIES: No edema, no clubbing, MUSCULOSKELETAL: no muscle waisting NEURO: Awake; no lateralizing signs. SKIN: No Rash PSYCH; Flat affect Vitals/I&O's: Vital Signs Temp Pulse Resp BP Pulse Ox 98.1 F 98 20 H 130/62 H 99 03/21/19 03:00 03/21/19 03:00 03/21/19 03:00 03/21/19 03:00 03/21/19 03:00 Oxygen Flow Rate (L/min) 2 Oxygen Delivery Method Nasal Cannula Weight: 134.7 kg Body Mass Index (BMI) 55.2 Finger Stick Blood Glucose 169 Intake and Output for Last 24 Hours 03/19/19 03/20/19 03/21/19 23:59 23:59 23:59 Intake Total 5416.67 / 5416.67 2540.75 / 3090.75 750 / 750 Output Total 700 / 700 5500 / 6100 600 / 600 Balance 4716.67 / 4716.67 -2959.25 / -3009.25 150 / 150 Laboratory Results 03/20/19 06:34: Sodium 138, Potassium 4.2, Chloride 106, Carbon Dioxide 26.0, Anion Gap 6, BUN 14, Creatinine 0.95, Estim Creat Clear Calc 49.90, Est GFR (MDRD) Af Amer 78, Est GFR (MDRD) Non-Af 64, BUN/Creatinine Ratio 14.7, Glucose 134 H, Calcium 8.5 03/20/19 06:34: Sodium Cancelled, Potassium Cancelled, Chloride Cancelled, Carbon Dioxide Cancelled, Anion Gap Cancelled, BUN Cancelled, Creatinine Cancelled, Est GFR (MDRD) Af Amer Cancelled, Est GFR (MDRD) Non-Af Cancelled, BUN/Creatinine Ratio Cancelled, Glucose Cancelled, Calcium Cancelled, Magnesium 1.9 03/20/19 06:34: B-Natriuretic Peptide 102.8 H 03/20/19 10:25: D-Dimer Quant (PE/DVT) 4.87 H* 03/21/19 04:55: WBC 6.2, RBC 4.28, Hgb 11.8 L, Hct 37.1, MCV 86.7, MCH 27.6, MCHC 31.8 L, RDW Std Deviation 46.4 H, RDW Coeff of Sam 14.6, Plt Count 198, MPV 10.3 03/21/19 04:55: Sodium 141, Potassium 3.7, Chloride 106, Carbon Dioxide 32.0, Anion Gap 3 L, BUN 19 H, Creatinine 0.66, Estim Creat Clear Calc 71.82, Est GFR (MDRD) Af Amer 119, Est GFR (MDRD) Non-Af 98, BUN/Creatinine Ratio 28.7 H, Glucose 113 H, Calcium 8.4 L, Magnesium 2.0 Current Medications Acetaminophen (Tylenol) 1,000 mg PO Q8H PRN PRN PRN Reason: Pain Score 1-3/10 or Fever Last Admin: 03/20/19 04:31 Dose: 1,000 mg Documented by: Atorvastatin Calcium (Lipitor) 10 mg PO DAILY [facility] Last Admin: 03/20/19 09:54 Dose: 10 mg Documented by: Docusate Sodium (Colace) 100 mg PO BID PRN PRN PRN Reason: CONSTIPATION Enoxaparin Sodium (Lovenox) 40 mg SC DAILY [facility] Last Admin: 03/20/19 21:35 Dose: Not Given Documented by: Fluoxetine HCl (Prozac) 20 mg PO DAILY [facility] Last Admin: 03/20/19 09:53 Dose: 20 mg Documented by: Hydromorphone HCl (Dilaudid Inj) 0.5 - 1.5 mg IV Q3H PRN PRN PRN Reason: Pain Score 4-10/10 Lactated Ringer's () 1,000 mls @ 150 mls/hr IV .Q6H40M [facility] Last Infusion: 03/20/19 06:03 Dose: 0 mls/hr Documented by: Ketorolac Tromethamine (Toradol) 30 mg IV Q6H [facility] Stop: 03/24/19 18:31 Last Admin: 03/21/19 06:33 Dose: Not Given Documented by: Ondansetron HCl (Zofran) 4 mg IV Q4H PRN PRN PRN Reason: NAUSEA Oxycodone HCl (Oxyir) 5 - 10 mg PO Q4H PRN PRN PRN Reason: Pain Score 4-10/10 Simethicone (Mylicon) 80 mg PO [facility] Last Admin: 03/20/19 21:33 Dose: 80 mg Documented by: Sodium Chloride () 10 - 40 ml IV UD PRN PRN Reason: SALINE FLUSH Last Admin: 03/20/19 21:34 Dose: 10 ml Documented by: Medical Necessity - Tobacco Use Smoking Status: Former smoker Assessment/Plan All Active Problems Postoperative hypoxia (Acute) The patient is a 54 year old F who underwent Total Abdominal Hysterectomy and Bilateral Salpingo-Oophorectomy, Lysis of Adhesions on account of Uterine Fibroids, Simple Endometrial Hyperplasia, Postmenopausal Bleeding, Adhesions, Endometriosis in 03/19/2021 Dr Blue. The hospitalist service was consulted to assist with postop management after patient developed hypoxia 1. Postop hypoxia ?Possibly related to atelectasis, Placed on supplemental oxygen therapy to keep oxygen saturation greater than 90, as part of patient's evaluation ordered a d-dimer, BNP, BMP, chest x-ray. Also did encourage the patient on the use of incentive spirometry ?Patient has been weaned off oxygen stable to be discharged home. 2. Status post Total Abdominal Hysterectomy and Bilateral Salpingo-Oophorectomy, Lysis of Adhesions on account of Uterine Fibroids, Simple Endometrial Hyperplasia, Postmenopausal Bleeding, Adhesions, Endometriosis in 03/19/[address] Blue 3. Suspected sleep apnea ?Patient to undergo sleep study as outpatient following her discharge. Instructed to call PCP to set up an appointment 4. Dyslipidemia -patient is on statin therapy, continued at home dose 5. Dysthymia ?Patient is on SSRI 6. DVT prophylaxis ?On enoxaparin, dose adjusted for weight 9. Cholelithiasis ?Currently asymptomatic patient to follow-up with PCP for subsequent care Code Visit Inpatient E&M: 86397 Subs Hosp L2
[2019-03-21 08:05] VITALS: BP 126/59; PULSE 91; RESP 18; TEMP 36.8; O2SAT 96
[2019-03-21 08:23] VITALS: O2SAT 95
[2019-03-21 08:29] VITALS: O2SAT 86; O2SAT 92; O2SAT 94
[2019-03-21] MEDS: Atorvastatin Calcium 10 MG Tablet PO (08:31)
[2019-03-21] MEDS: FLUoxetine 20 MG Capsule PO (08:32)
--- NOTE | 2019-03-21 08:43 | PN.OBGYN_ITS ---
Patient Problems: Active and Suspected Problems Postoperative hypoxia (Acute) Objective: Patient without complaints. Tolerating diet well. Positive flatus. CTA showed no evidence of pulmonary embolus. Chest x-ray suggestive of perhaps some atelectasis. Suspect that this and apnea may be the cause of her difficulty maintaining saturations on room air yesterday. Today her sats are in the 90s for the most part on room air. From a surgical standpoint the patient is doing well and ready for discharge. - Physical Exam Vitals/I&O's: Vital Signs Temp Pulse Resp BP Pulse Ox 98.3 F 91 18 126/59 H 92 03/21/19 08:05 03/21/19 08:05 03/21/19 08:05 03/21/19 08:05 03/21/19 08:29 Oxygen Flow Rate (L/min) [ 2 AMBULATION with Oxygen] Oxygen Flow Rate (L/min) [ 0 AMBULATING on Room Air] Oxygen Flow Rate (L/min) [At 0 REST on Room Air] Oxygen Flow Rate (L/min) 2 Oxygen Delivery Method Room Air Weight: 296 lb 15.402 oz Body Mass Index (BMI) 55.2 Finger Stick Blood Glucose 169 Intake and Output for Last 24 Hours 03/19/19 03/20/19 03/21/19 23:59 23:59 23:59 Intake Total 5416.67 / 5416.67 2540.75 / 3090.75 750 / 750 Output Total 700 / 700 5500 / 6100 600 / 600 Balance 4716.67 / 4716.67 -2959.25 / -3009.25 150 / 150 Comment: Minimal vaginal bleeding. CBC okay. Laboratory Results 03/20/19 06:34: Sodium 138, Potassium 4.2, Chloride 106, Carbon Dioxide 26.0, Anion Gap 6, BUN 14, Creatinine 0.95, Estim Creat Clear Calc 49.90, Est GFR (MDRD) Af Amer 78, Est GFR (MDRD) Non-Af 64, BUN/Creatinine Ratio 14.7, Glucose 134 H, Calcium 8.5 03/20/19 06:34: Sodium Cancelled, Potassium Cancelled, Chloride Cancelled, Carbon Dioxide Cancelled, Anion Gap Cancelled, BUN Cancelled, Creatinine Cancelled, Est GFR (MDRD) Af Amer Cancelled, Est GFR (MDRD) Non-Af Cancelled, BUN/Creatinine Ratio Cancelled, Glucose Cancelled, Calcium Cancelled, Magnesium 1.9 03/20/19 06:34: B-Natriuretic Peptide 102.8 H 03/20/19 10:25: D-Dimer Quant (PE/DVT) 4.87 H* 03/21/19 04:55: WBC 6.2, RBC 4.28, Hgb 11.8 L, Hct 37.1, MCV 86.7, MCH 27.6, MCHC 31.8 L, RDW Std Deviation 46.4 H, RDW Coeff of Sam 14.6, Plt Count 198, MPV 10.3 03/21/19 04:55: Sodium 141, Potassium 3.7, Chloride 106, Carbon Dioxide 32.0, Anion Gap 3 L, BUN 19 H, Creatinine 0.66, Estim Creat Clear Calc 71.82, Est GFR (MDRD) Af Amer 119, Est GFR (MDRD) Non-Af 98, BUN/Creatinine Ratio 28.7 H, Glucose 113 H, Calcium 8.4 L, Magnesium 2.0 Current Medications Acetaminophen (Tylenol) 1,000 mg PO Q8H PRN PRN PRN Reason: Pain Score 1-3/10 or Fever Last Admin: 03/20/19 04:31 Dose: 1,000 mg Documented by: Atorvastatin Calcium (Lipitor) 10 mg PO DAILY [facility] [place] Last Admin: 03/21/19 08:31 Dose: 10 mg Documented by: Docusate Sodium (Colace) 100 mg PO BID PRN PRN PRN Reason: CONSTIPATION Enoxaparin Sodium (Lovenox) 40 mg SC DAILY [facility] [place] Last Admin: 03/21/19 08:30 Dose: Not Given Documented by: Fluoxetine HCl (Prozac) 20 mg PO DAILY [facility] [place] Last Admin: 03/21/19 08:32 Dose: 20 mg Documented by: Hydromorphone HCl (Dilaudid Inj) 0.5 - 1.5 mg IV Q3H PRN PRN PRN Reason: Pain Score 4-10/10 Ketorolac Tromethamine (Toradol) 30 mg IV Q6H [facility] [place] Stop: 03/24/19 18:31 Last Admin: 03/21/19 06:33 Dose: Not Given Documented by: Ondansetron HCl (Zofran) 4 mg IV Q4H PRN PRN PRN Reason: NAUSEA Oxycodone HCl (Oxyir) 5 - 10 mg PO Q4H PRN PRN PRN Reason: Pain Score 4-10/10 Simethicone (Mylicon) 80 mg PO [facility] Last Admin: 03/21/19 08:32 Dose: 80 mg Documented by: Sodium Chloride () 10 - 40 ml IV UD PRN PRN Reason: SALINE FLUSH Last Admin: 03/20/19 21:34 Dose: 10 ml Documented by: Medical Necessity - Tobacco Use Smoking Status: Former smoker Assessment/Plan All Active Problems Postoperative hypoxia (Acute) Doing well postoperative day #2 status post total abdominal hysterectomy and BSO. From surgical standpoint okay to discharge to home. Home-going instructions given.
== END 2019-03-21 11:00 | disposition home or self-care (01) | DRG 742 ==
LOC: ACINP 08:01 → MS3 10:43
PROVIDERS: Anesthesiology; Internal Medicine; Admitting Provider Obstetrics & Gynecology; Family Provider Family Medicine; PCP Family Medicine; Referring Provider Obstetrics & Gynecology; Visit Provider Obstetrics & Gynecology
PROC: 0UT90ZZ Resection of Uterus, Open Approach (ICD-10-PCS; CPT 58150; principal; 2019-03-19 09:50)
DX: D25.9 Leiomyoma of uterus, unspecified (principal); Z68.43 Body mass index [BMI] 50.0-59.9, adult; Z87.891 Personal history of nicotine dependence; N95.0 Postmenopausal bleeding; N80.1 Endometriosis of ovary; N73.6 Female pelvic peritoneal adhesions (postinfective); N85.00 Endometrial hyperplasia, unspecified; R09.02 Hypoxemia; E78.5 Hyperlipidemia, unspecified; K80.20 Calculus of gallbladder without cholecystitis without obstruction; F34.1 Dysthymic disorder; E66.01 Morbid (severe) obesity due to excess calories
CPT/HCPCS: 36415; 71045; 71275; 80048; 80053; 82962; 83036; 83735; 83880; 85027; 85379; 85610; 85730; 86850; 86900; 86901; 88307; 93005; 99251; J7120; Q9967; A4216; G0463; J1940; J2405